=== PATIENT | male | born 1985 | race African-American/Black ===

== ENCOUNTER 2018-07-09 22:23 | Inpatient (IN) ==
[2018-07-09] MEDS ORDERED: ALUM/MAG/SIMETH/LIDO VISC 1:1 30 ML BOTTLE PO STA (23:41)
[2018-07-09] MEDS ORDERED: MORPHINE 4 MG/1 ML VIAL IV STA (23:41)
[2018-07-09] MEDS ORDERED: PANTOPRAZOLE 40 MG VIAL IV STA (23:41)
[2018-07-09] MEDS ORDERED: ONDANSETRON 4 MG/2 ML VIAL IV STA (23:41)
[2018-07-09] MEDS ORDERED: SODIUM CHLORIDE 0.9% 500 ML IV STA (23:41)
[2018-07-10 00:59] LABS: Basophils # 0.1 10*3/uL (0.0-0.2); Basophils % 0.5 % (0.0-0.8); Eosinophils # 0.2 10*3/uL (0.0-0.87); Eosinophils % 1.5 % (0.00-10.9); Hematocrit 44.7 VOL% (42.0-52.0); Hemoglobin 14.7 GM/DL (14.0-18.0); Immature Granulocytes % 0.2 %; Immature Granulocytes Absolute 0.02 #; Lymphocytes # 4.3 10*3/uL (1.4-4.0); Lymphocytes % 40.2 % (21.2-54.2); Mean Corpuscular HGB Conc 32.9 GM/DL (32-36); Mean Corpuscular Hemoglobin 29 PG (27-34); Mean Corpuscular Volume 86.8 FL (87-102); Mean Platelet Volume 10.2 FL (9.6-12.0); Monocytes # 0.8 10*3/uL (0.11-0.8); Monocytes % 7.2 % (1.7-12.7); Neutrophils # 5.4 10*3/uL (1.4-7.4); Neutrophils % 50.4 % (38.7-73.9); Platelet Count 208 T/CUMM (130-400); Red Blood Count 5.15 MC/CUMM (3.8-5.5); Red Cell Distribution Width 13.1 % (9.3-17.3); White Blood Count 10.6 T/CUMM (4-12)
[2018-07-10 01:03] LABS: Apearance,Urine CLEAR (Clear); Bilirubin,Urine Negative (Negative); Blood, Urine Negative (Negative); Glucose,Urine (UA) >=500 mg/dL (Negative); Ketones,Urine Negative (Negative); Mucus,Urine Occasional /LPF (Occasional); Nitrite,Urine Negative (Negative); Protein,Urine Negative; RBC,Urine 1 /HPF (0-4); Squamous Epithelial Cell,Urine Occasional /HPF (0-10); Urine Color Yellow (Yellow); Urine Specific Gravity 1.028 (1.001-1.035); Urine Urobilinogen < 2.0 EU/DL (0.2-1.0); WBC,Urine <1 /HPF (0-6)
[2018-07-10 01:16] LABS: Lactic Acid 1.5 MMOL/L (0.4-2.0)
[2018-07-10 01:20] LABS: Alanine Aminotransferase 21 U/L (16-61); Albumin 3.7 G/DL (3.4-5.0); Alkaline Phosphatase 97 U/L (45-117); Amylase 69 U/L (25-115); Aspartate Amino Transferase 14 U/L (0-37); Blood Urea Nitrogen 8 MG/DL (7-18); Calcium 8.7 MG/DL (8.5-10.1); Glucose 272 MG/DL (74-106); Osmolality,Calculated 282.7 MOS/KG (273-304); Potassium 3.9 MMOL/L (3.5-5.1); Sodium 138 MMOL/L (136-145); Total Protein 7.5 G/DL (6.4-8.3); Troponin I Only < 0.015 NG/ML (0.00-0.045)
[2018-07-10] MEDS ORDERED: SODIUM CHLORIDE 0.9% 500 ML IV STA (01:31)
[2018-07-10] MEDS ORDERED: cloNIDine 0.1 MG TABLET PO STA (01:33)
[2018-07-10] MEDS ORDERED: ACETAMINOPHEN 325 MG TABLET PO PRN (03:17)
[2018-07-10] MEDS ORDERED: DEXTROSE 50% 25 GM/50 ML VIAL IV PRN (03:21)
[2018-07-10] MEDS ORDERED: GLUCAGON 1 MG VIAL IM PRN (03:21)
[2018-07-10 04:24] LABS: Basophils # 0.1 10*3/uL (0.0-0.2); Basophils % 0.5 % (0.0-0.8); Eosinophils # 0.2 10*3/uL (0.0-0.87); Eosinophils % 1.6 % (0.00-10.9); Hematocrit 43.4 VOL% (42.0-52.0); Hemoglobin 14.5 GM/DL (14.0-18.0); Immature Granulocytes % 0.5 %; Immature Granulocytes Absolute 0.06 #; Lymphocytes # 4.3 10*3/uL (1.4-4.0); Lymphocytes % 39.1 % (21.2-54.2); Mean Corpuscular HGB Conc 33.4 GM/DL (32-36); Mean Corpuscular Hemoglobin 29 PG (27-34); Mean Corpuscular Volume 85.3 FL (87-102); Mean Platelet Volume 10.1 FL (9.6-12.0); Monocytes # 0.7 10*3/uL (0.11-0.8); Monocytes % 6.4 % (1.7-12.7); NRBC # 0.05 10*3/uL; Neutrophils # 5.7 10*3/uL (1.4-7.4); Neutrophils % 51.9 % (38.7-73.9); Platelet Count 201 T/CUMM (130-400); Red Blood Count 5.09 MC/CUMM (3.8-5.5)
[2018-07-10 04:43] LABS: Albumin 3.5 G/DL (3.4-5.0); Bilirubin,Total 0.6 MG/DL (0.2-1.0); Calcium 8.4 MG/DL (8.5-10.1); Osmolality,Calculated 279.7 MOS/KG (273-304); Potassium 3.9 MMOL/L (3.5-5.1); Total Protein 7.1 G/DL (6.4-8.3)
[2018-07-10 04:49] LABS: Risk Ratio 3.28; Thyroid Stimulating Hormone 2.02 uIU/ml (0.358-3.74); VLDL CHOLESTEROL 33.4 MG/DL
[2018-07-10 04:55] LABS: Eosinophils 2 % (0-10); Hypochromasia 1+; Lymphocytes 36 % (20-55); Segmented Neutrophils 57 % (50-85); Total Cells Counted 100
[2018-07-10 04:56] LABS: Atypical Lymphocytes Few; Microcytosis 1+; Platelet Estimate Normal
[2018-07-10] MEDS ORDERED: MORPHINE 4 MG/1 ML VIAL IV PRN (05:06)
[2018-07-10] MEDS: SODIUM CHLORIDE 0.9% 1,000 ML IV SCH ×3 (07:28→21:04)
[2018-07-10] MEDS: INSULIN LISPRO 100 UNIT/ML SUBCUT SCH ×4 (08:24→21:03)
[2018-07-10] MEDS: PANTOPRAZOLE 40 MG TABLET PO SCH (09:54)
[2018-07-10] MEDS: ENOXAPARIN 40 MG/0.4 ML SYRINGE SUBCUT SCH (09:54)
[2018-07-10] MEDS: amLODIPine 5 MG TABLET PO SCH (09:54)
[2018-07-10] MEDS: INSULIN GLARGINE 100 UNIT/ML SUBCUT SCH (09:55)
[2018-07-10 11:56] LABS: HIV Antigen/Antibody Result Nonreactive (Nonreactive)
[2018-07-11] MEDS: SODIUM CHLORIDE 0.9% 1,000 ML IV SCH ×2 (05:39→18:16)
[2018-07-11 06:43] LABS: Basophils % 0.4 % (0.0-0.8); Eosinophils # 0.2 10*3/uL (0.0-0.87); Eosinophils % 1.6 % (0.00-10.9); Hematocrit 43.2 VOL% (42.0-52.0); Hemoglobin 14.3 GM/DL (14.0-18.0); Immature Granulocytes % 0.3 %; Immature Granulocytes Absolute 0.03 #; Lymphocytes % 39.1 % (21.2-54.2); Mean Corpuscular HGB Conc 33.1 GM/DL (32-36); Mean Corpuscular Hemoglobin 29 PG (27-34); Mean Corpuscular Volume 86.4 FL (87-102); Mean Platelet Volume 9.9 FL (9.6-12.0); Monocytes # 0.6 10*3/uL (0.11-0.8); Monocytes % 5.7 % (1.7-12.7); Neutrophils # 5.4 10*3/uL (1.4-7.4); Neutrophils % 52.9 % (38.7-73.9); Platelet Count 217 T/CUMM (130-400); Red Cell Distribution Width 13.2 % (9.3-17.3); White Blood Count 10.2 T/CUMM (4-12)
[2018-07-11 07:21] LABS: Albumin 3.2 G/DL (3.4-5.0); Bilirubin,Total 0.9 MG/DL (0.2-1.0); Calcium 8.8 MG/DL (8.5-10.1); Osmolality,Calculated 280.3 MOS/KG (273-304); Potassium 3.8 MMOL/L (3.5-5.1); Total Protein 6.5 G/DL (6.4-8.3)
[2018-07-11] MEDS: INSULIN LISPRO 100 UNIT/ML SUBCUT SCH ×4 (08:42→21:21)
[2018-07-11] MEDS: amLODIPine 5 MG TABLET PO SCH (10:01)
[2018-07-11] MEDS: ENOXAPARIN 40 MG/0.4 ML SYRINGE SUBCUT SCH (10:01)
[2018-07-11] MEDS: PANTOPRAZOLE 40 MG TABLET PO SCH (10:01)
[2018-07-11] MEDS: INSULIN GLARGINE 100 UNIT/ML SUBCUT SCH (10:05)
[2018-07-12] MEDS: SODIUM CHLORIDE 0.9% 1,000 ML IV SCH ×2 (02:16→10:17)
[2018-07-12 07:03] LABS: Basophils % 0.4 % (0.0-0.8); Eosinophils # 0.2 10*3/uL (0.0-0.87); Eosinophils % 2.1 % (0.00-10.9); Hematocrit 40.9 VOL% (42.0-52.0); Hemoglobin 13.6 GM/DL (14.0-18.0); Immature Granulocytes % 0.2 %; Immature Granulocytes Absolute 0.02 #; Lymphocytes # 3.9 10*3/uL (1.4-4.0); Lymphocytes % 42.7 % (21.2-54.2); Mean Corpuscular HGB Conc 33.3 GM/DL (32-36); Mean Corpuscular Hemoglobin 29 PG (27-34); Mean Corpuscular Volume 86.3 FL (87-102); Mean Platelet Volume 10.3 FL (9.6-12.0); Monocytes # 0.5 10*3/uL (0.11-0.8); Monocytes % 5.5 % (1.7-12.7); Neutrophils # 4.4 10*3/uL (1.4-7.4); Neutrophils % 49.1 % (38.7-73.9); Platelet Count 205 T/CUMM (130-400); Red Blood Count 4.74 MC/CUMM (3.8-5.5); Red Cell Distribution Width 12.8 % (9.3-17.3)
[2018-07-12 07:21] LABS: Albumin 3.1 G/DL (3.4-5.0); Bilirubin,Total 0.7 MG/DL (0.2-1.0); Calcium 8.6 MG/DL (8.5-10.1); Osmolality,Calculated 282.3 MOS/KG (273-304); Potassium 3.6 MMOL/L (3.5-5.1); Total Protein 6.3 G/DL (6.4-8.3)
[2018-07-12] MEDS: INSULIN LISPRO 100 UNIT/ML SUBCUT SCH ×2 (08:33→11:34)
[2018-07-12] MEDS: ENOXAPARIN 40 MG/0.4 ML SYRINGE SUBCUT SCH (08:34)
[2018-07-12] MEDS: PANTOPRAZOLE 40 MG TABLET PO SCH (08:34)
[2018-07-12] MEDS: amLODIPine 5 MG TABLET PO SCH (08:34)
[2018-07-12] MEDS: INSULIN GLARGINE 100 UNIT/ML SUBCUT SCH (08:34)
[2018-07-12 12:16] VITALS: BP 128/87
== END 2018-07-12 14:10 | disposition home or self-care (01) | DRG 440 ==
LOC: EDBD → N.ED 22:23 → N.EDINP 07-10 03:17 → N.3E 07-10 04:48 → N.2E 07-10 19:39
PROVIDERS: ADMIT Hospitalist; ATTEND Hospitalist